=== PATIENT | male | born 1965 | race Caucasian/White ===

== ENCOUNTER 2017-06-01 20:08 | Observation (INO) | payer SELFPAY ==
[~2017-06-01] VITALS: Ht 167.6 cm; Wt 77.3 kg
[~2017-06-01 20:08] MED LIST: LORT7.5T3 PO; NAPR550 PO; Z.0.NO CURRENT MEDS
[2017-06-01 20:27] VITALS: BP 113/73; PULSE 109; RESP 22; TEMP 98.2; O2SAT 98
[2017-06-01] MEDS ORDERED: ALBU.5I NEB (20:55)
[2017-06-01] MEDS ORDERED: ALBU6.7H INH (20:55)
[2017-06-01] MEDS ORDERED: OMEP2.5S OT (20:55)
--- NOTE | 2017-06-01 21:06 | PD ---
HPI Chief Complaint: Respiratory Symptoms Time Seen by Provider: 20:59 Travel History International Travel<30 days: No Contact w/Intl Traveler<30days: No Traveled to known affect area: No History of Present Illness HPI The patient is a 51 year old male who presents to the [facility] emergency department with a history of sore throat, cough, and congestion that began 2 days ago. He reports taking Dayquil and Nyquil. He has had a subjective fever. Vomiting x1. He denies having any diarrhea. He last moved his bowels yesterday. He has had increased shortness of breath with chest tightness. He has a history of asthma since childhood, however he also smokes 1 and 1/2 PPD. On review of systems otherwise he denies having any neck pain, chest pain, abdominal pain, diarrhea, urinary symptoms, or neurologic symptoms. PFSH Past Medical History Narrative Medical The patient's PMH is significant for is significant for asthma and GERD. Asthma: Yes Diminished Hearing: No Respiratory: Yes Past Surgical History Narrative Surgical orthopedic sx for broken bones. Other Surgery: Yes (broken bones) Social History Alcohol Use: No Tobacco Use: Yes (1 /2 PPD) Substance Use: No Allergies-Medications (Allergen,Severity, Reaction): Coded Allergies: No Known Allergies (Verified Allergy, Unknown, 06/02/17) Reported Meds & Prescriptions Reported Meds & Active Scripts Active Reported Prilosec (Omeprazole Magnesium) 2.5 Mg Pow OT DAILY@0600 Albuterol Neb (Albuterol Sulfate) 2.5 Mg/0.5 Ml Neb 2.5 Mg NEB Q4HR NEB PRN Note: The Albuterol Sulfate Inhalation Solution is concentrated and must be diluted. Read complete instructions carefully before using. Proventil Hfa 6.7 GM Inh (Albuterol Sulfate) 90 Mcg/Act Aer 2 Puff INH Q4-6H PRN Review of Systems Except as stated in HPI: all other systems reviewed are Neg General / Constitutional: Positive: Fever, Chills Eyes: No: Visual changes HENT: Positive: Sore Throat, Congestion, No: Headaches, Rhinorrhea Cardiovascular: Positive: Dyspnea on exertion, No: Chest Pain or Discomfort Respiratory: Positive: Cough, Shortness of Breath, Wheezing Gastrointestinal: Positive: Nausea, Vomiting, No: Diarrhea, Abdominal Pain Genitourinary: No: Dysuria Musculoskeletal: No: Pain Skin: No Rash Neurologic: No: Weakness Psychiatric: No: Depression Endocrine: No: Polydipsia Hematologic/Lymphatic: No: Easy Bruising Physical Exam Narrative General: The patient is a well-developed well-nourished male, uncomfortable appearing on arrival with frequent wet sounding cough. Head and Neck exam: Head is normocephalic atraumatic. Eyes: EOMI, pupils are equal round and reactive to light. Nose: Midline septum with pink mucous membranes Mouth: Dentition unremarkable. Moist mucus membranes. Posterior oropharynx is not erythematous. No tonsillar hypertrophy. Uvula midline. Airway patent. Neck: No palpable lymphadenopathy. No nuchal rigidity. No thyromegaly. Cardiovascular: Sinus tachycardia in the 1 teens without murmurs, gallops, or rubs. No pulse deficit to the extremities on simultaneous auscultation and palpation of his radial artery. Lungs: Soft expiratory wheezes audible in bilateral lung francisco, no rhonchi, no crackles. Abdomen: Soft, without tenderness to palpation in all 4 quadrants of the abdomen. No guarding, rebound, or rigidity. Normal bowel sounds are audible. No tenderness on palpation of McBurney's point. Extremities: No clubbing, cyanosis, or edema. 2+ pulses in all 4 extremities. No calf tenderness on palpation peer Back: No costovertebral angle tenderness to palpation. Neurologic Exam: Grossly nonfocal. Skin Exam: No rash noted. Intact skin that is warm and dry. Data Data Last Documented VS Vital Signs Date Time Temp Pulse Resp B/P (MAP) Pulse Ox O2 Delivery O2 Flow Rate FiO2 06/01/17 20:27 98.2 109 22 113/73 (86) 98 Orders Orders Complete Blood Count With Diff (06/01/17 20:28) Comprehensive Metabolic Panel (06/01/17 20:28) B-Type Natriuretic Peptide (06/01/17 20:28) Act Partial Throm Time (Ptt) (06/01/17 20:28) Prothrombin Time / Inr (Pt) (06/01/17 20:28) Ckmb (Isoenzyme) Profile (06/01/17 20:28) Troponin I (06/01/17 20:28) Influenzae A/B Antigen (06/01/17 20:28) Blood Culture (06/01/17 20:28) Electrocardiogram (06/01/17 20:28) Chest, Pa & Lat (06/01/17 20:28) Lactic Acid Sepsis Protocol (06/01/17 21:00) Sodium Chloride 0.9% Flush (Ns Flush) (06/01/17 21:15) Methylprednisolone So Succ Inj (Solumedr (06/01/17 21:15) Albuterol-Ipratropium Neb (Duoneb Neb) (06/01/17 21:15) Sodium Chlor 0.9% 1000 Ml Inj (Ns 1000 M (06/01/17 21:15) CKMB (06/01/17 20:58) CKMB% (06/01/17 20:58) Oseltamivir (Tamiflu) (06/01/17 22:45) Admit Order (Ed Use Only) (06/01/17 23:45) Labs Laboratory Tests Test 06/01/17 20:58 06/01/17 23:00 Prothrombin Time 11.6 SEC Prothromb Time International Ratio 1.1 RATIO Activated Partial Thromboplast Time 31.1 SEC Blood Urea Nitrogen 15 MG/DL Creatinine 1.58 MG/DL Random Glucose 88 MG/DL Total Protein 7.4 GM/DL Albumin 3.7 GM/DL Calcium Level 8.6 MG/DL Alkaline Phosphatase 72 U/L Aspartate Amino Transf (AST/SGOT) 19 U/L Alanine Aminotransferase (ALT/SGPT) 18 U/L Total Bilirubin 0.4 MG/DL Sodium Level 136 MEQ/L Potassium Level 3.9 MEQ/L Chloride Level 108 MEQ/L Carbon Dioxide Level 20.7 MEQ/L Anion Gap 7 MEQ/L Estimat Glomerular Filtration Rate 47 ML/MIN Total Creatine Kinase 425 U/L Creatine Kinase MB 0.9 NG/ML Creatine Kinase MB % 0.2 % Troponin I 0.03 NG/ML B-Type Natriuretic Peptide 11 PG/ML White Blood Count 9.6 TH/MM3 Red Blood Count 4.92 MIL/MM3 Hemoglobin 16.3 GM/DL Hematocrit 46.6 % Mean Corpuscular Volume 94.7 FL Mean Corpuscular Hemoglobin 33.2 PG Mean Corpuscular Hemoglobin Concent 35.0 % Red Cell Distribution Width 13.2 % Platelet Count 173 TH/MM3 Mean Platelet Volume 7.8 FL Neutrophils (%) (Auto) 83.3 % Lymphocytes (%) (Auto) 7.0 % Monocytes (%) (Auto) 8.8 % Eosinophils (%) (Auto) 0.1 % Basophils (%) (Auto) 0.8 % Neutrophils # (Auto) 8.0 TH/MM3 Lymphocytes # (Auto) 0.7 TH/MM3 Monocytes # (Auto) 0.8 TH/MM3 Eosinophils # (Auto) 0.0 TH/MM3 Basophils # (Auto) 0.1 TH/MM3 CBC Comment DIFF FINAL Differential Comment Lactic Acid Level 1.5 mmol/L MDM Medical Decision Making Medical Screen Exam Complete: Yes Emergency Medical Condition: Yes Medical Record Reviewed: Yes Interpretation(s) Last Impressions Chest X-Ray 06/01/172027 Signed Impressions: Service Date/Time: Thursday, June 01, 2017 20:37 - CONCLUSION: 1. No acute cardiopulmonary disease. Servando Daly MD Differential Diagnosis Influenza, versus pneumonia, versus COPD exacerbation, versus sepsis Narrative Course During the course of the patient's emergency department visit, the patient's history, examination, and differential diagnosis were reviewed with the patient. The patient was placed on a pipe line walker with oximetry and frequent blood pressure monitoring. The patient had IV access obtained and blood work sent for analysis. The patient had an EKG done on arrival. The patient's EKG shows a sinus tachycardia with a heart rate of [address]-T wave abnormalities, no acute ST segment elevation, QRS duration is 86 ms, QTC is 375 ms. The patient was initially provided duo nebs 3, Solu-Medrol 125 mg IV, normal saline 1 L IV fluid bolus. The patient's laboratory studies were reviewed and remarkable for influenza testing that was positive. The patient was given Tamiflu 75 mg p.o. 1. Radiology studies were reviewed and remarkable for a chest x-ray that shows no acute cardiopulmonary disease. The patient was reexamined at approximately 11:35 PM and continue to have diffuse wheezing, O2 saturation on room air is 92%. The patient was placed on 2 L for comfort. The patient will be admitted to the hospital for continued evaluation and treatment of an asthma exacerbation associated with influenza. The patient's results were discussed with the patient, including the plan of care. I explained that further testing and/ or monitoring is indicated based on the patient's history, examination, and/ or laboratory findings. Therefore, I recommended admission for additional evaluation. The patient expressed understanding and was agreeable with this plan. The patient was admitted to the hospital in guarded condition and [facility] Sepsis Criteria SIRS Criteria (2 or more): Heart rate over 90 Physician Communication Physician Communication The patient's case including history, pertinent physical examination findings, and laboratory studies were discussed with Nidhi, the nurse practice. It was agreed that the [facility] Diagnosis Primary Impression: Asthma exacerbation Qualified Codes: J45.41 - Moderate persistent asthma with (acute) exacerbation Additional Impression: Influenza Admitting Information Admitting Physician Requests: Observation Nila Medina MD Jun 01, 2017 21:06
[2017-06-01] MEDS ORDERED: methylPREDNISolone SOD SUCC 125 MG/2 ML VIAL IV PUSH ONE (21:15)
[2017-06-01] MEDS ORDERED: SODIUM CHLORIDE 0.9% FLUSH 10 ML FLUSH IVF PRN (21:15)
[2017-06-01] MEDS ORDERED: SODIUM CHLOR 0.9% 1000 ML INJ 1,000 ML IV ONE (21:15)
[2017-06-01] MEDS: RESP: ALBUTEROL 2.5 MG/IPRATROPIUM 0.5 MG NEB (SCH) INH ×2 (21:17→21:18)
[2017-06-01 21:22] LABS: INTERNATIONAL NORMALIZED RATIO 1.1 RATIO; PROTHROMBIN TIME - PATIENT 11.6 SEC (9.8-11.6)
[2017-06-01 21:35] LABS: ALBUMIN 3.7 GM/DL (3.4-5.0); AST (GOT) 19 U/L (15-37); BICARBONATE 20.7 MEQ/L (21.0-32.0); BLOOD UREA NITROGEN 15 MG/DL (7-18); CALCIUM 8.6 MG/DL (8.5-10.1); CHLORIDE 108 MEQ/L (98-107); CREATININE 1.58 MG/DL (0.60-1.30); GLOMERULAR FILTRATION RATE 47 ML/MIN (>89); GLUCOSE,RANDOM 88 MG/DL (74-106); SODIUM (NA) 136 MEQ/L (136-145)
[2017-06-01 21:36] LABS: ALT (GPT) 18 U/L (12-78)
[2017-06-01 21:40] LABS: ALKALINE PHOSPHATASE 72 U/L (45-117); TOTAL BILIRUBIN ADULT 0.4 MG/DL (0.2-1.0); TOTAL PROTEIN 7.4 GM/DL (6.4-8.2); TROPONIN I 0.03 NG/ML (0.02-0.05)
--- NOTE | 2017-06-01 21:40 | RADRPT ---
EXAM DATE/TIME: 06/01/2017 20:37 [place] COMPARISON: No previous studies available for comparison. INDICATIONS : Cough. MEDICAL HISTORY : Asthma SURGICAL HISTORY : None. ENCOUNTER: Initial ACUITY: 1 week PAIN SCORE: 0/10 LOCATION: Bilateral chest FINDINGS: PA and lateral views of the chest demonstrate the lungs to be symmetrically aerated without evidence of mass, infiltrate or effusion. The cardiomediastinal contours are unremarkable. Osseous structure s are intact. The background interstitium is prominent though this is likely chronic in nature. CONCLUSION: 1. No acute cardiopulmonary disease. Servando Daly MD on June 01, 2017 at 21:38 Board Certified Radiologist. This report was verified electronically.
[2017-06-01] MEDS ORDERED: OSELTAMIVIR PHOSPHATE 75 MG CAP PO ONE (22:45)
[2017-06-01 23:16] LABS: BASOPHIL # 0.1 TH/MM3 (0-0.2); BASOPHIL % 0.8 % (0.0-2.0); EOSINOPHIL % 0.1 % (0.0-4.0); HEMATOCRIT 46.6 % (39.0-51.0); HEMOGLOBIN 16.3 GM/DL (13.0-17.0); LYMPHOCYTE # 0.7 TH/MM3 (1.0-4.8); MEAN CELL VOLUME 94.7 FL (80.0-100.0); MEAN CORPUSCULAR HEMOGLOBIN 33.2 PG (27.0-34.0); MEAN PLATELET VOLUME 7.8 FL (7.0-11.0); MONO % 8.8 % (0.0-8.0); MONOCYTE # 0.8 TH/MM3 (0-0.9); NEUT % 83.3 % (16.0-70.0); PLATELET COUNT 173 TH/MM3 (150-450); RED BLOOD COUNT 4.92 MIL/MM3 (4.50-5.90); RED CELL DISTRIBUTION WIDTH 13.2 % (11.6-17.2); WHITE BLOOD COUNT 9.6 TH/MM3 (4.0-11.0)
[2017-06-02] VITALS (8 sets, daily range): BP systolic 113–144; BP diastolic 56–80; PULSE 94–124; RESP 14–20; TEMP 97.1–101.8; O2SAT 89–98
--- NOTE | 2017-06-02 00:06 | HHI.HP ---
[facility] No Primary Care Physician Admission Diagnosis Asthma exacerbation, Influenza Diagnoses: (1) Influenza (2) Asthma exacerbation Chief Complaint: Cough Subjective fever Congestion Travel History International Travel<30 Days: No Contact w/Intl Traveler <30 Da: No Traveled to Known Affected Are: No History of Present Illness This is a 51-year-old male patient with a known medical history of asthma and GERD who presented to the ED with complaints of cough, congestion, sore throat and subjective fevers for 2 days. Patient states for the last few days he has had sore throat, nonproductive cough, congestion and one bout of vomiting, states he has been taking DayQuil and NyQuil without relief. Does admit to subjective fever, but has not checked his temperature at home. Patient does have asthma, has not seen a PCP for many years, states he uses his girlfriend's inhaler intermittently when needed. Patient states his asthma has been well- controlled until recently requiring use of his inhaler more often without relief of dyspnea. Denies any diarrhea, chest pain, abdominal pain, or dysuria. Patient's girlfriend is also in the ED tonight, with similar symptoms. Does admit to smoking one half packs of cigarettes per day since the age of 18. Review of Systems Constitutional: COMPLAINS OF: Fatigue, Fever, DENIES: Chills Eyes: DENIES: Blurred vision, Diplopia Respiratory: COMPLAINS OF: Cough, Shortness of breath, DENIES: Sputum production Cardiovascular: DENIES: Chest pain, Palpitations Gastrointestinal: DENIES: Abdominal pain, Black stools, Bloody stools, Constipation, Nausea, Vomiting Neurologic: DENIES: Abnormal gait Psychiatric: DENIES: Anxiety Except as stated in HPI: all other systems reviewed are Neg Past Family Social History Past Medical History Asthma GERD Past Surgical History Unspecified ankle surgery. Reported Medications Active Reported Prilosec (Omeprazole Magnesium) 2.5 Mg Pow OT DAILY@0600 Albuterol Neb (Albuterol Sulfate) 2.5 Mg/0.5 Ml Neb 2.5 Mg NEB Q4HR NEB PRN Note: The Albuterol Sulfate Inhalation Solution is concentrated and must be diluted. Read complete instructions carefully before using. Proventil Hfa 6.7 GM Inh (Albuterol Sulfate) 90 Mcg/Act Aer 2 Puff INH Q4-6H PRN Allergies: Coded Allergies: No Known Allergies (Verified Allergy, Unknown, 06/02/17) Active Ordered Medications Current Medications Medications (Trade) Dose Ordered Sig/Daxa Route Start Time Stop Time Status Last Admin (NS Flush) 2 ml UNSCH PRN IVF 06/01/17 21:15 Family History Denies any recent significant family medical history. Social History Does admit to smoking one half packs per day of cigarettes since the age of 18. Admits to rare alcohol use. Denies any illicit drug use. Physical Exam Vital Signs Vital Signs Date Time Temp Pulse Resp B/P (MAP) Pulse Ox O2 Delivery O2 Flow Rate FiO2 06/01/17 20:27 98.2 109 22 113/73 (86) 98 Physical Exam GENERAL: Well-developed, well-nourished patient lying in bed with apparent accessory muscle use, on supplemental O2. Coughing. SKIN: Warm and dry. No rash. Flushed HEAD: Normocephalic. Atraumatic. EYES: Pupils equal and round. No scleral icterus. No injection or drainage. ENT: No nasal bleeding or discharge. Mucous membranes pink and moist. NECK: Supple. Trachea midline. CARDIOVASCULAR: Tachycardic rhythm S1, S2 noted. No murmur appreciated. RESPIRATORY: No accessory muscle use. Diffuse expiratory wheezing. Breath sounds equal bilaterally. GASTROINTESTINAL: Abdomen soft, non-tender, nondistended. Normoactive bowel sounds x4. MUSCULOSKELETAL: No obvious deformities. Extremities without clubbing, cyanosis , or edema. NEUROLOGICAL: Awake and alert. No obvious cranial nerve deficits. Motor grossly within normal limits. 5/5 muscle strength in bilateral upper and lower extremities. Labored speech Laboratory Laboratory Tests Test 06/01/17 20:58 06/01/17 23:00 Prothrombin Time 11.6 Prothromb Time International Ratio 1.1 Activated Partial Thromboplast Time 31.1 Blood Urea Nitrogen 15 Creatinine 1.58 Random Glucose 88 Total Protein 7.4 Albumin 3.7 Calcium Level 8.6 Alkaline Phosphatase 72 Aspartate Amino Transf (AST/SGOT) 19 Alanine Aminotransferase (ALT/SGPT) 18 Total Bilirubin 0.4 Sodium Level 136 Potassium Level 3.9 Chloride Level 108 Carbon Dioxide Level 20.7 Anion Gap 7 Estimat Glomerular Filtration Rate 47 Total Creatine Kinase 425 Creatine Kinase MB 0.9 Creatine Kinase MB % 0.2 Troponin I 0.03 B-Type Natriuretic Peptide 11 White Blood Count 9.6 Red Blood Count 4.92 Hemoglobin 16.3 Hematocrit 46.6 Mean Corpuscular Volume 94.7 Mean Corpuscular Hemoglobin 33.2 Mean Corpuscular Hemoglobin Concent 35.0 Red Cell Distribution Width 13.2 Platelet Count 173 Mean Platelet Volume 7.8 Neutrophils (%) (Auto) 83.3 Lymphocytes (%) (Auto) 7.0 Monocytes (%) (Auto) 8.8 Eosinophils (%) (Auto) 0.1 Basophils (%) (Auto) 0.8 Neutrophils # (Auto) 8.0 Lymphocytes # (Auto) 0.7 Monocytes # (Auto) 0.8 Eosinophils # (Auto) 0.0 Basophils # (Auto) 0.1 CBC Comment DIFF FINAL Differential Comment Lactic Acid Level 1.5 Date/Time Source Procedure Growth Status 06/01/17 20:55 Blood Peripheral Aerobic Blood Culture Pending Received 06/01/17 20:55 Blood Peripheral Anaerobic Blood Culture Pending Received 06/01/17 20:50 Nasal Washing Influenza Types A,B Antigen (CAROLEE) - Final Positive For Flu A Antigen Complete Result Diagram: 06/01/17229906/01/172057 Septic Shock Reassessment Septic shock perfusion: reassessment completed Caprini VTE Risk Assessment Caprini VTE Risk Assessment: No/Low Risk (score <= 1) Caprini Risk Assessment Model Point Value = 1 Point Value = 2 Point Value = 3 Point Value = 5 Age 41-60 Minor surgery BMI > 25 kg/m2 Swollen legs Varicose veins or History of unexplained or recurrent spontaneous Oral contraceptives or hormone replacement Sepsis (< 1 month) Serious lung disease, including pneumonia (< 1 month) Abnormal pulmonary function Acute myocardial infarction Congestive heart failure (< 1 month) History of inflammatory bowel disease Medical patient at bed rest Age 61-74 Arthroscopic surgery Major open surgery (> 45 min) Laparoscopic surgery (> 45 min) Malignancy Confined to bed (> 72 hours) Immobilizing plaster cast Central venous access Age >= 75 History of VTE Family history of VTE Factor V Leiden Prothrombin [id number] Lupus anticoagulant Anticardiolipin antibodies Elevated serum homocysteine Heparin-induced thrombocytopenia Other congenital or acquired thrombophilia Stroke (< 1 month) Elective arthroplasty Hip, pelvis, or leg fracture Acute spinal cord injury (< 1 month) Prophylaxis Regimen Total Risk Factor Score Risk Level Prophylaxis Regimen 0-1 Low Early ambulation 2 Moderate Order ONE of the following: *Sequential Compression Device (SCD) *Heparin 5000 units SQ BID 3-4 Higher Order ONE of the following medications: *Heparin 5000 units SQ TID *Enoxaparin/Lovenox 40 mg SQ daily (WT < 150 kg, CrCl > 30 mL/min) *Enoxaparin/Lovenox 30 mg SQ daily (WT < 150 kg, CrCl > 10-29 mL/min) *Enoxaparin/Lovenox 30 mg SQ BID (WT < 150 kg, CrCl > 30 mL/min) AND/OR *Sequential Compression Device (SCD) 5 or more Highest Order ONE of the following medications: *Heparin 5000 units SQ TID (Preferred with Epidurals) *Enoxaparin/Lovenox 40 mg SQ daily (WT < 150 kg, CrCl > 30 mL/min) *Enoxaparin/Lovenox 30 mg SQ daily (WT < 150 kg, CrCl > 10-29 mL/min) *Enoxaparin/Lovenox 30 mg SQ BID (WT < 150 kg, CrCl > 30 mL/min) AND *Sequential Compression Device (SCD) Assessment and Plan Problem List: (1) Influenza ICD Code: J11.1 - Influenza due to unidentified influenza virus with other respiratory manifestations Status: Acute (2) Asthma exacerbation ICD Code: J45.901 - Unspecified asthma with (acute) exacerbation Status: Acute Assessment and Plan This is a 51-year-old male patient with a known medical history of asthma and GERD who presented to the ED with complaints of cough, congestion, sore throat and subjective fevers for 2 days. Influenza A antigen positive with associated cough, congestion, subjective fevers and sore throat History of asthma, possible exacerbation Chest x-ray reviewed showing no acute cardiopulmonary disease. Influenza nasal washing positive for antigen A. Blood cultures drawn and pending. Follow growth. CBC reviewed, no leukocytosis. Follow a.m. labs. Lactic acid 1.5. Will check UA, follow. Started Tamiflu 75 mg p.o. twice daily. Was given a prednisone IV 125 mg 1 and DuoNeb in ED. Will continue IV steroids, taper. Continue home inhalers. Duo nebs scheduled and as needed as needed for wheezing. Supplemental O2 as needed, requiring 2 L nasal cannula at this time. Monitor oxygen saturations. Acute kidney injury suspect secondary to possible dehydration from vomiting Creatinine 1.58 on presentation. Mild CPK elevation. Patient given IV fluid bolus. Continue maintenance IV fluids for now. Monitor a.m. labs. GERD: Continue home PPI. DVT prophylaxis: SCDs. Problem Qualifiers (1) Asthma exacerbation: Qualified Codes: J45.41 - Moderate persistent asthma with (acute) exacerbation Soni Echevarria Jun 02, 2017 00:06
[2017-06-02] MEDS ORDERED: SODIUM CHLORIDE 0.9% FLUSH 10 ML FLUSH IV FLUSH PRN (00:15)
[2017-06-02] MEDS ORDERED: BISACODYL 10 MG SUPP RECTAL PRN (00:15)
[2017-06-02] MEDS ORDERED: NALOXONE HCL 0.4 MG/ML AMP IV PUSH PRN (00:15)
[2017-06-02] MEDS ORDERED: SENNOSIDES 8.6 MG TAB PO PRN (00:15)
[2017-06-02] MEDS ORDERED: MAGNESIUM HYDROXIDE SUSP 30 ML CUP PO PRN (00:15)
[2017-06-02] MEDS ORDERED: ONDANSETRON HCL 4 MG/2 ML VIAL IVP PRN (00:15)
[2017-06-02] MEDS ORDERED: ALBUTEROL SULFATE 90 MCG/ACT HFA 8 GM INHALER INH PRN (00:15)
[2017-06-02] MEDS ORDERED: RESP: ALBUTEROL 2.5 MG/IPRATROPIUM 0.5 MG NEB (PRN) NEB (00:15)
[2017-06-02] MEDS ORDERED: RESP: ALBUTEROL CONC 2.5 MG/0.5 ML NEB NEB PRN (00:15)
[2017-06-02] MEDS: SODIUM CHLOR 0.45% 1000 ML INJ 1,000 ML IV SCH ×3 (00:52→21:54)
[2017-06-02 04:16] LABS: BACTERIA, URINE RARE /hpf; BILIRUBIN, URINE NEG (NEG); BLOOD, URINE LARGE (NEG); GLUCOSE,URINE NEG (NEG); KETONE, URINE NEG (NEG); MUCUS URINE FEW /lpf (OCC); NITRITE,URINE NEG (NEG); PH, URINE 5.5 (5.0-8.5); URINE COLOR YELLOW (YELLW/STRAW); URINE LEUKOCYTE ESTERASE NEG (NEG)
[2017-06-02] MEDS: methylPREDNISolone SOD SUCC 40 MG/1 ML VIAL IV PUSH SCH ×3 (04:55→18:52)
[2017-06-02 05:55] LABS: AUTOMATED NEUTROPHIL # 6.7 TH/MM3 (1.8-7.7); BASOPHIL % 0.5 % (0.0-2.0); HEMATOCRIT 47.5 % (39.0-51.0); HEMOGLOBIN 16.4 GM/DL (13.0-17.0); LYMPH % 5.9 % (9.0-44.0); LYMPHOCYTE # 0.4 TH/MM3 (1.0-4.8); MEAN CELL VOLUME 95.8 FL (80.0-100.0); MEAN CORPUSCULAR HEMOGLOBIN 33.1 PG (27.0-34.0); MEAN CORPUSCULAR HGB CONC 34.6 % (32.0-36.0); MEAN PLATELET VOLUME 7.9 FL (7.0-11.0); MONO % 2.6 % (0.0-8.0); MONOCYTE # 0.2 TH/MM3 (0-0.9); PLATELET COUNT 176 TH/MM3 (150-450); RED BLOOD COUNT 4.96 MIL/MM3 (4.50-5.90); RED CELL DISTRIBUTION WIDTH 13.7 % (11.6-17.2); WHITE BLOOD COUNT 7.4 TH/MM3 (4.0-11.0)
[2017-06-02 06:28] LABS: BICARBONATE 21.8 MEQ/L (21.0-32.0); CALCIUM 8.2 MG/DL (8.5-10.1); CREATININE 1.34 MG/DL (0.60-1.30)
[2017-06-02] MEDS: RESP: ALBUTEROL 2.5 MG/IPRATROPIUM 0.5 MG NEB (SCH) NEB ×3 (08:06→20:00)
[2017-06-02] MEDS: PANTOPRAZOLE SOD 20 MG DELAYED RELEASE TAB PO SCH (08:51)
[2017-06-02] MEDS: OSELTAMIVIR PHOSPHATE 75 MG CAP PO SCH ×2 (08:51→21:54)
[2017-06-02] MEDS: DOCUSATE SODIUM 50 MG/SENNA 8.6 MG TAB PO SCH ×2 (08:52→21:00)
[2017-06-02] MEDS: SODIUM CHLORIDE 0.9% FLUSH 10 ML FLUSH IV FLUSH SCH ×2 (08:52→21:54)
[2017-06-02] MEDS: ACETAMINOPHEN 325 MG TAB PO PRN ×2 (08:54→14:22)
--- NOTE | 2017-06-02 11:35 | EKG ---
Date Performed: 06/01/2017 Time Performed: 20:50:25 PTAGE: 51 years EKG: SINUS TACHYCARDIA NONSPECIFIC ST & T-WAVE ABNORMALITY ABNORMAL RHYTHM ECG Compared to prior tracing, ST-T changes are noted in the inferolateral leads, consider inferolateral ischemia. DOCTOR: Servando Cabral Interpretating Date/Time 06/02/2017 12:03:39
--- NOTE | 2017-06-02 11:57 | HHI.PR ---
Subjective Remarks Follow-up visit influenza, asthma exacerbation. Patient seen and examined today lying in bed. Reports feeling better. Occasional shortness of breath and dyspnea. O2 nasal cannula. States that he doesn't use any O2 at home. Patient has numbness or treatments at home. He also admits to continuing smoking one half pack per day. Discussed with patient extensively affects of smoking and asthma exacerbations. Denies fevers, chills, nausea, vomiting, diarrhea. Denies any chest pain, headaches, dizziness, palpitations. Objective Vitals Vital Signs Date Time Temp Pulse Resp B/P (MAP) Pulse Ox O2 Delivery O2 Flow Rate FiO2 06/02/17 08:30 98.0 114 20 134/76 (95) 92 06/02/17 08:06 94 21 06/02/17 03:46 97.1 115 17 144/63 (90) 89 06/02/17 02:12 101.8 124 14 138/66 (90) 98 06/02/17 01:59 06/02/17 00:53 118 18 116/56 (76) 90 Nasal Cannula 2.00 06/02/17 00:19 96 06/01/17 20:27 98.2 109 22 113/73 (86) 98 I/O 06/01/17 06/01/17 06/01/17 06/02/17 06/02/17 06/02/17 07:00 15:00 23:00 07:00 15:00 23:00 Intake Total 1440 ml 1000 ml Balance 1440 ml 1000 ml Intake Oral 440 ml IV Total 1000 ml 1000 ml Result Diagram: 06/02/1752106/02/17521 Imaging Last Impressions Chest X-Ray 06/01/172027 Signed Impressions: Service Date/Time: Thursday, June 01, 2017 20:37 - CONCLUSION: 1. No acute cardiopulmonary disease. Servando Daly MD Objective Remarks GENERAL: This is a well-nourished, well-developed patient, in no apparent distress. SKIN: Warm and dry. HEENT: Normocephalic. Pupils equal round and reactive. Nose without bleeding. Airway patent. NECK: Trachea midline. CARDIOVASCULAR: Regular rate and rhythm without murmurs, gallops, or rubs. RESPIRATORY: Diminished breath sounds. No wheezes, rales, or rhonchi. GASTROINTESTINAL: Abdomen soft, non-tender, nondistended. Bowel Sounds normoactive x4. MUSCULOSKELETAL: Extremities without clubbing, cyanosis, or edema. NEUROLOGICAL: Awake and alert. Oriented to time, place, person. No focal neuro deficit. Moves all extremities. Normal speech. A/P Problem List: (1) Influenza ICD Code: J11.1 - Influenza due to unidentified influenza virus with other respiratory manifestations Status: Acute (2) Asthma exacerbation ICD Code: J45.901 - Unspecified asthma with (acute) exacerbation Status: Acute Assessment and Plan 51-year-old male patient with a known medical history of asthma and GERD who presented to the ED with complaints of cough, congestion, sore throat and subjective fevers for 2 days. Influenza A antigen positive with associated cough, congestion, subjective fevers and sore throat History of asthma, possible exacerbation - Chest x-ray showed no acute cardiopulmonary disease. - Influenza nasal washing positive for antigen A. - Blood cultures drawn and pending. Lactic acid 1.5. - Started Tamiflu 75 mg p.o. twice daily. - Was given a prednisone IV 125 mg 1 and DuoNeb in ED. Solu-Medrol 40 mg every 6 hours. We'll switch over to by mouth prednisone with discharge. - Continue DuoNeb scheduled and when necessary. Mucinex twice a day. Incentive spirometry. - Supplemental O2 as needed, requiring 2 L nasal cannula at this time. Monitor oxygen saturations. - Fluticasone inhaler - Smoking cessation encouraged. Discussed with patient extensively. Nicotine patch if needed. Acute kidney injury on possible chronic kidney disease - suspect secondary to possible dehydration from vomiting - Creatinine 1.58 on presentation. Mild CPK elevation. - Patient given IV fluid bolus. Continue maintenance IV fluids for now. - Follow-up labs GERD: Continue home PPI. DVT prophylaxis: SCDs, early ambulation Discharge Planning Plan to DC home tomorrow if clinically improved. Problem Qualifiers (1) Asthma exacerbation: Qualified Codes: J45.41 - Moderate persistent asthma with (acute) exacerbation Kaushik Sánchez Jun 02, 2017 11:57
[2017-06-02] MEDS: guaiFENesin E.R. 600 MG TAB PO SCH ×2 (14:20→21:54)
[2017-06-02] MEDS: FLUTICASONE PROPIONATE 110 MCG/ACT 12 GM INHALER INH SCH (21:53)
[2017-06-03] MEDS: methylPREDNISolone SOD SUCC 40 MG/1 ML VIAL IV PUSH SCH ×3 (00:11→14:30)
[2017-06-03 00:26] VITALS: BP 127/82; PULSE 107; RESP 16; TEMP 98.6; O2SAT 95
[2017-06-03 04:49] VITALS: BP 135/86; PULSE 111; RESP 16; TEMP 98; O2SAT 95
[2017-06-03] MEDS: RESP: ALBUTEROL 2.5 MG/IPRATROPIUM 0.5 MG NEB (SCH) NEB ×2 (07:05→13:04)
[2017-06-03] MEDS: DOCUSATE SODIUM 50 MG/SENNA 8.6 MG TAB PO SCH (07:56)
[2017-06-03] MEDS: SODIUM CHLORIDE 0.9% FLUSH 10 ML FLUSH IV FLUSH SCH (08:20)
[2017-06-03] MEDS: FLUTICASONE PROPIONATE 110 MCG/ACT 12 GM INHALER INH SCH (08:20)
[2017-06-03] MEDS: OSELTAMIVIR PHOSPHATE 75 MG CAP PO SCH (08:21)
[2017-06-03] MEDS: PANTOPRAZOLE SOD 20 MG DELAYED RELEASE TAB PO SCH (08:21)
[2017-06-03] MEDS: guaiFENesin E.R. 600 MG TAB PO SCH (08:21)
[2017-06-03 08:45] VITALS: BP 121/75; PULSE 100; RESP 18; TEMP 98; O2SAT 93
[2017-06-03] MEDS ORDERED: OSEL75 PO (09:16)
[2017-06-03] MEDS ORDERED: guaiFENesin ER PO (09:16)
[2017-06-03] MEDS ORDERED: Albuterol-Ipratropium Neb NEB (09:16)
[2017-06-03] MEDS ORDERED: FLUTI110I INH (09:16)
[2017-06-03] MEDS ORDERED: MEDR4PAK PO (09:16)
--- NOTE | 2017-06-03 09:45 | HHI.PR ---
Subjective Remarks Follow-up visit influenza, asthma exacerbation. Patient seen and examined today sitting in bed. Reports he is doing better. Occasional shortness of breath but otherwise improved. Patient brought him to be off O2 nasal cannula today and will increase his activity and see if he can tolerate it. Denies chest pain, palpitations, headaches, dizziness. Denies fevers, chills, nausea, vomiting, diarrhea, dysuria. Objective Vitals Vital Signs Date Time Temp Pulse Resp B/P (MAP) Pulse Ox O2 Delivery O2 Flow Rate FiO2 06/03/17 08:45 98.0 100 18 121/75 (90) 93 06/03/17 07:58 98 Nasal Cannula 2.00 06/03/17 07:07 Nasal Cannula 2.00 06/03/17 04:49 98.0 111 16 135/86 (102) 95 06/03/17 00:26 98.6 107 16 127/82 (97) 95 06/02/17 19:32 98.5 109 16 140/76 (97) 98 06/02/17 12:32 97.8 94 18 113/80 (91) 91 I/O 06/02/17 06/02/17 06/02/17 06/03/17 06/03/17 06/03/17 07:00 15:00 23:00 07:00 15:00 23:00 Intake Total 1440 ml 1000 ml Output Total 400 ml 600 ml Balance 1440 ml 1000 ml -400 ml -600 ml Intake Oral 440 ml IV Total 1000 ml 1000 ml Output Urine Total 400 ml 600 ml # Voids 2 # Bowel Movements 1 Result Diagram: 06/02/1752106/02/17521 Imaging Last Impressions Chest X-Ray 06/01/172027 Signed Impressions: Service Date/Time: Thursday, June 01, 2017 20:37 - CONCLUSION: 1. No acute cardiopulmonary disease. Servando Daly MD Objective Remarks GENERAL: This is a well-nourished, well-developed patient, in no apparent distress. SKIN: Warm and dry. HEENT: Normocephalic. Pupils equal round and reactive. Nose without bleeding. Airway patent. NECK: Trachea midline. CARDIOVASCULAR: Regular rate and rhythm without murmurs, gallops, or rubs. RESPIRATORY: Diminished breath sounds. No rales, or rhonchi. Minimal upper lobe wheeze. GASTROINTESTINAL: Abdomen soft, non-tender, nondistended. Bowel Sounds normoactive x4. MUSCULOSKELETAL: Extremities without clubbing, cyanosis, or edema. NEUROLOGICAL: Awake and alert. Oriented to time, place, person. No focal neuro deficit. Moves all extremities. Normal speech. A/P Problem List: (1) Influenza ICD Code: J11.1 - Influenza due to unidentified influenza virus with other respiratory manifestations Status: Acute (2) Asthma exacerbation ICD Code: J45.901 - Unspecified asthma with (acute) exacerbation Status: Acute Assessment and Plan 51-year-old male patient with a known medical history of asthma and GERD who presented to the ED with complaints of cough, congestion, sore throat and subjective fevers for 2 days. Influenza A antigen positive with associated cough, congestion, subjective fevers and sore throat History of asthma, possible exacerbation - Chest x-ray showed no acute cardiopulmonary disease. - Influenza nasal washing positive for antigen A. - Blood cultures no growth to date. Lactic acid 1.5. - Tamiflu 75 mg p.o. twice daily. - Was given a prednisone IV 125 mg 1 and DuoNeb in ED. Solu-Medrol 40 mg every 6 hours. We'll switch over to by mouth Solu-Medrol Dosepak with discharge. - Continue DuoNeb scheduled and when necessary. Mucinex twice a day. Incentive spirometry. - Supplemental O2 as needed, requiring 2 L nasal cannula at this time. Monitor oxygen saturations. - Fluticasone inhaler - Smoking cessation encouraged. Discussed with patient extensively. Nicotine patch if needed. - Start Singulair daily - If patient improved off O2 and able to tolerate with activities, will DC patient home with the rest of his medication. Acute kidney injury on possible chronic kidney disease - suspect secondary to possible dehydration from vomiting - Creatinine 1.58 -->1.34 - Patient given IV fluids - Improved GERD: Continue home PPI. DVT prophylaxis: SCDs, early ambulation Discharge Planning Plan to DC home if clinically improved. Problem Qualifiers (1) Asthma exacerbation: Qualified Codes: J45.41 - Moderate persistent asthma with (acute) exacerbation Kaushik Sánchez Jun 03, 2017 09:45
[2017-06-03] MEDS ORDERED: MONT10TA4 PO (11:05)
[2017-06-03 12:13] VITALS: O2SAT 93
[2017-06-03 12:38] VITALS: BP 125/73; PULSE 106; RESP 18; TEMP 98.1; O2SAT 93
--- NOTE | 2017-06-03 13:52 | HHI.DS ---
Discharge Summary Admission Date Jun 01, 2017 at 23:46 Discharge Date: Jun 03, 2017 Admitting Diagnosis Asthma exacerbation, Influenza (1) Influenza ICD Code: J11.1 - Influenza due to unidentified influenza virus with other respiratory manifestations Status: Acute (2) Asthma exacerbation ICD Code: J45.901 - Unspecified asthma with (acute) exacerbation Status: Acute Procedures None Brief History - From Admission This is a 51-year-old male patient with a known medical history of asthma and GERD who presented to the ED with complaints of cough, congestion, sore throat and subjective fevers for 2 days. Patient states for the last few days he has had sore throat, nonproductive cough, congestion and one bout of vomiting, states he has been taking DayQuil and NyQuil without relief. Does admit to subjective fever, but has not checked his temperature at home. Patient does have asthma, has not seen a PCP for many years, states he uses his girlfriend's inhaler intermittently when needed. Patient states his asthma has been well- controlled until recently requiring use of his inhaler more often without relief of dyspnea. Denies any diarrhea, chest pain, abdominal pain, or dysuria. Patient's girlfriend is also in the ED tonight, with similar symptoms. Does admit to smoking one half packs of cigarettes per day since the age of 18. CBC/BMP: 06/02/17 0522 06/02/17 0522 Significant Findings Laboratory Tests Test 06/01/17 20:58 06/01/17 23:00 06/02/17 03:55 06/02/17 05:22 Activated Partial Thromboplast Time 31.1 SEC (24.3-30.1) Creatinine 1.58 MG/DL (0.60-1.30) 1.34 MG/DL (0.60-1.30) Chloride Level 108 MEQ/L (98-107) 109 MEQ/L (98-107) Carbon Dioxide Level 20.7 MEQ/L (21.0-32.0) Estimat Glomerular Filtration Rate 47 ML/MIN (>89) 56 ML/MIN (>89) Total Creatine Kinase 425 U/L (39-308) 628 U/L (39-308) Neutrophils (%) (Auto) 83.3 % (16.0-70.0) 91.0 % (16.0-70.0) Lymphocytes (%) (Auto) 7.0 % (9.0-44.0) 5.9 % (9.0-44.0) Monocytes (%) (Auto) 8.8 % (0.0-8.0) Neutrophils # (Auto) 8.0 TH/MM3 (1.8-7.7) Lymphocytes # (Auto) 0.7 TH/MM3 (1.0-4.8) 0.4 TH/MM3 (1.0-4.8) Urine Protein 30 mg/dL (NEG-TRACE) Urine Occult Blood LARGE (NEG) Urine RBC 7 /hpf (0-3) Urine Bacteria RARE /hpf (NONE) Urine Mucus FEW /lpf (OCC) Random Glucose 121 MG/DL (74-106) Calcium Level 8.2 MG/DL (8.5-10.1) Imaging Last Impressions Chest X-Ray 06/01/172027 Signed Impressions: Service Date/Time: Thursday, June 01, 2017 20:37 - CONCLUSION: 1. No acute cardiopulmonary disease. Servando Daly MD PE at Discharge GENERAL: This is a well-nourished, well-developed patient, in no apparent distress. SKIN: Warm and dry. HEENT: Normocephalic. Pupils equal round and reactive. Nose without bleeding. Airway patent. NECK: Trachea midline. CARDIOVASCULAR: Regular rate and rhythm without murmurs, gallops, or rubs. RESPIRATORY: Diminished breath sounds. No rales, or rhonchi. Minimal upper lobe wheeze. GASTROINTESTINAL: Abdomen soft, non-tender, nondistended. Bowel Sounds normoactive x4. MUSCULOSKELETAL: Extremities without clubbing, cyanosis, or edema. NEUROLOGICAL: Awake and alert. Oriented to time, place, person. No focal neuro deficit. Moves all extremities. Normal speech. Pt update on day of discharge Follow-up visit influenza, asthma exacerbation. Patient seen and examined today sitting in bed. Reports he is doing better. Occasional shortness of breath but otherwise improved. Off O2 nasal cannula today and will increase his activity and see if he can tolerate it. Denies chest pain, palpitations, headaches, dizziness. Denies fevers, chills, nausea, vomiting, diarrhea, dysuria. Able to tolerate off O2 NC. Hospital Course Patient is a 51-year-old male with primary medical history of asthma and GERD who came into the hospital for complaints of cough, congestion, sore throat and subjective fevers for 2 days. Patient has tested positive for influenza A antigen. Chest x-ray showed no acute cardiopulmonary disease. Blood cultures no growth to date. Patient was started on Tamiflu by mouth twice daily. He was given Solu-Medrol IV 125 mg in the ED and continued to be on Solu-Medrol IV. He will be switched over to by mouth Solu-Medrol Dosepak upon discharge. He had nebulizer treatments and encouraged to continue to use duo nebs at home including fluticasone inhaler. Patient is a current smoker 1-1/2 pack per day encouraged to quit and use nicotine patch. He will also start to take Singulair to control allergies. During his hospitalization he was also found to have acute kidney injury possibly secondary to dehydration when he wasn't feeling well. Creatinine has significantly improved as patient has been given IV fluids. Patient is off O2 and has been tolerating increased activities. Clinically improved and will continue to take his medications home as ordered. Patient has met maximal benefits of hospitalization. Clinically stable for discharge. Pt Condition on Discharge: Stable Discharge Disposition: Discharge Home Discharge Time: <= 30 minutes Discharge Instructions DIET: Follow Instructions for: Heart Healthy Diet Activities you can perform: Regular-No Restrictions Activities to Avoid: Driving for 24 hrs, Strenuous Activity Other Activity Instructions: Avoid exposure to allergens Follow up Referrals: PCP Follow-up - 1 Week New Medications: Methylprednisolone Dosepak (Medrol Dosepak) 4 Mg Dspk 4 MG PO DIRECTED, #1 DSPK 0 Refills Per Pharmacist direction Fluticasone 12 GM Inh (Flovent Hfa 12 GM Inh) 110 Mcg/Act Inh 1 PUFF INH BID for Asthma Management, #1 INHALER Montelukast (Montelukast) 10 Mg Tab 10 MG PO HS for Allergies, #30 TAB Oseltamivir (Tamiflu) 75 Mg Cap 75 MG PO BID for INfluenza, #4 CAP [Albuterol-Ipratropium Neb] () 1 AMPULE NEBU 1 AMPULE NEB Q6HR WHILE AWAKE NEB for Asthma Management, #90 AMPULE [guaiFENesin ER] () 600 MG TABCR 600 MG PO BID for Cough, #14 TAB Continued Medications: Albuterol 6.7 GM Inh (Proventil Hfa 6.7 GM Inh) 90 Mcg/Act Aer 2 PUFF INH Q4-6H PRN for SHORTNESS OF BREATH, #1 INHALER 0 Refills Albuterol Neb (Albuterol Neb) 2.5 Mg/0.5 Ml Neb 2.5 MG NEB Q4HR NEB PRN for SHORTNESS OF BREATH, EA Note: The Albuterol Sulfate Inhalation Solution is concentrated and must be diluted. Read complete instructions carefully before using. Omeprazole Magnesium (Prilosec) 2.5 Mg Pow OT DAILY@0600 Kaushik Sánchez Jun 03, 2017 13:52
--- NOTE | 2017-06-03 13:54 | HHI.DCPOC ---
Discharge Care Plan Diagnosis: (1) Asthma exacerbation (2) Influenza Your Health Problems Are: Cough Shortness of Breath Goals to Promote Your Health * To prevent worsening of your condition and complications * To maintain your health at the optimal level Directions to Meet Your Goals Take your medications as prescribed Follow your dietary instruction Follow activity as directed Keep your appointments as scheduled Take your immunizations and boosters as scheduled If your symptoms worsen call your PCP, if no PCP go to Urgent Care Center or Emergency Room Smoking is Dangerous to Your Health. Avoid second hand smoke Call the 24-hour hour crisis hotline for domestic abuse at Kaushik Sánchez [facility] Jun 03, 2017 13:54
[2017-06-03 14:56] LABS: BICARBONATE 21.1 MEQ/L (21.0-32.0); CALCIUM 9.3 MG/DL (8.5-10.1); CREATININE 1.3 MG/DL (0.60-1.30)
[2017-06-03] MEDS ORDERED: MONTELUKAST SODIUM 10 MG TAB PO SCH (21:00)
== END 2017-06-03 17:16 | disposition home or self-care (01) ==
LOC: NEPC 20:08 → NEDA 23:46 → NEPGCP 06-02 01:59
PROVIDERS: ADMIT Hospitalist; ATTEND Hospitalist
DX: J11.1 Influenza due to unidentified influenza virus with other respiratory manifestations (principal); J45.41 Moderate persistent asthma with (acute) exacerbation; R00.0 Tachycardia, unspecified; R94.31 Abnormal electrocardiogram [ECG] [EKG]; K21.9 Gastro-esophageal reflux disease without esophagitis; N17.9 Acute kidney failure, unspecified; F17.210 Nicotine dependence, cigarettes, uncomplicated
CPT/HCPCS: 71046; 80048; 80053; 81001; 82550; 82552; 82948; 83605; 83880; 84484; 85025; 85610; 85730; 87040; 87804; 93005; 94150; 94640; 94664; 96361; 96374; 96376; 99285; G0378; J2920; J2930; J7030